=== PATIENT | female | born 1990 ===

== ENCOUNTER 2021-08-28 12:45 | Outpatient (CLI) | payer OTHER ==
[~2021-08-28] VITALS: Ht 175.3 cm; Wt 109.2 kg
[2021-08-28 13:09] VITALS: BP 147/89
[2021-08-28] MEDS ORDERED: LR 1,000 ML IV ONE (13:20)
[2021-08-28 13:30] VITALS: BP 123/72
[2021-08-28] MEDS ORDERED: PRENTAB9 PO (13:50)
[2021-08-28] MEDS ORDERED: TUMS500C PO (13:50)
[2021-08-28] MEDS ORDERED: ASPI81CH33 PO (13:50)
[2021-08-28 13:57] VITALS: BP 121/71
[2021-08-28 14:11] LABS: CREATININE,RANDOM URINE 47.2 MG/DL; TOTAL PROTEIN,RANDOM URINE 9.6 MG/DL (0.0-12.0)
[2021-08-28 14:17] LABS: ALT/SGPT 24 U/L (12-78); BILIRUBIN,TOTAL 0.2 MG/DL (0.2-1.0); CREATININE FOR GFR 0.69 MG/DL (0.55-1.30); GLOMERULAR FILTRATION RATE > 60.0 (>60); LDH LACTATE DEHYDROGENASE 244 U/L (84-246); URIC ACID 3.9 MG/DL (2.6-6.0)
== END 2021-08-28 15:18 | disposition home or self-care (01) ==
LOC: M LDO 12:45
PROVIDERS: ATTEND Obstetrics & Gynecology
DX: O26.893 Other specified pregnancy related conditions, third trimester (principal); Z3A.28 28 weeks gestation of pregnancy; R42 Dizziness and giddiness; R11.0 Nausea; R51.9 Headache, unspecified; O09.813 Supervision of pregnancy resulting from assisted reproductive technology, third trimester
CPT/HCPCS: 59025; 82247; 82565; 82570; 83615; 84156; 84450; 84460; 84550; G0378; G0463

== ENCOUNTER 2021-11-04 12:54 | Outpatient (CLI) | payer OTHER ==
[~2021-11-04] VITALS: Ht 177.8 cm; Wt 106.6 kg
[~2021-11-04 12:54] MED LIST: ASPI81CH33 PO; PRENTAB9 PO; TUMS500C PO
[2021-11-04] MEDS ORDERED: BUTA1CAP PO (13:26)
[2021-11-04] MEDS ORDERED: ACET325C5 PO (13:27)
[2021-11-04 13:30] VITALS: BP 133/76
[2021-11-04] MEDS ORDERED: diphenhydrAMINE 50MG/ML VIAL (J1200) IV ONE (14:00)
[2021-11-04] MEDS ORDERED: METOCLOPRAMIDE INJ 10MG/2ML VIAL (J2765 PER 1) IV ONE (14:00)
[2021-11-04] MEDS ORDERED: LACTATED RINGER'S 1000 ML IV STA (14:00)
[2021-11-04] MEDS ORDERED: ACETAMINOPHEN 500 MG TAB PO ONE (14:00)
[2021-11-04 14:08] VITALS: BP 127/84
[2021-11-04 14:20] LABS: HEMATOCRIT 30.4 % (36.0-47.0); HEMOGLOBIN 10.5 g/dl (12.0-15.5); MEAN CORPUSCULAR HEMOGLOBIN 29.1 pg (27.0-33.0); MEAN CORPUSCULAR HGB CONC 34.5 g/dl (32.0-36.5); MEAN CORPUSCULAR VOLUME 84.2 fl (80.0-96.0); PLATELET COUNT, AUTOMATED 186 10^3/uL (150-450); RED BLOOD COUNT 3.61 10^6/uL (4.00-5.40); WHITE BLOOD COUNT 12.9 10^3/uL (4.0-10.0)
[2021-11-04 14:38] LABS: ALT/SGPT 28 U/L (12-78); BILIRUBIN,TOTAL 0.3 MG/DL (0.2-1.0); GLOMERULAR FILTRATION RATE > 60.0 (>60); LDH LACTATE DEHYDROGENASE 176 U/L (84-246); URIC ACID 5.8 MG/DL (2.6-6.0)
[2021-11-04 15:27] LABS: CREATININE,RANDOM URINE 49.4 MG/DL; TOTAL PROTEIN,RANDOM URINE 9.4 MG/DL (0.0-12.0)
== END 2021-11-04 15:50 | disposition home or self-care (01) ==
LOC: M LDO 12:54
PROVIDERS: ATTEND Obstetrics & Gynecology
DX: O26.893 Other specified pregnancy related conditions, third trimester (principal); R51.9 Headache, unspecified; Z3A.37 37 weeks gestation of pregnancy
CPT/HCPCS: 36415; 59025; 59412; 82247; 82565; 82570; 83615; 84156; 84450; 84460; 84550; 85027; G0378; J1200; J2765

== ENCOUNTER 2021-11-10 07:28 | Inpatient (IN) | payer OTHER ==
[2021-11-10] VITALS (33 sets, daily range): BP systolic 122–180; BP diastolic 58–114
[~2021-11-10] VITALS: Ht 177.8 cm; Wt 107.7 kg
[~2021-11-10 07:28] MED LIST changes: +ACET325C5 PO; +BUTA1CAP PO
[2021-11-10] MEDS ORDERED: LABETALOL 100MG/20ML VIAL IV ONE (08:15)
[2021-11-10] MEDS ORDERED: OXYTOCIN DRIP 30 UNITS in IV 1 EA IV SCH ×2 (08:15→20:25)
[2021-11-10] MEDS ORDERED: OXYTOCIN DRIP 30 UNITS in IV 1 EA IV PRN (08:15)
[2021-11-10] MEDS ORDERED: HOME MED LIST COMPLETE! XX SCH (08:15)
[2021-11-10] MEDS ORDERED: CARBOPROST TROMETHAMINE 250 MCG/ML AMP IM PRN (08:15)
[2021-11-10] MEDS ORDERED: TRANEXAMIC ACID INJection 1,000 MG in NS 100 ML IV PRN (08:15)
[2021-11-10] MEDS ORDERED: LIDOCAINE 1% MDV 20ML VIAL INFIL PRN (08:15)
[2021-11-10] MEDS: LR 1,000 ML IV SCH ×3 (08:56→16:15)
[2021-11-10 09:34] LABS: CREATININE,RANDOM URINE 50.9 MG/DL; TOTAL PROTEIN,RANDOM URINE 14.4 MG/DL (0.0-12.0)
[2021-11-10 09:37] LABS: ALT/SGPT 34 U/L (12-78); BILIRUBIN,TOTAL 0.3 MG/DL (0.2-1.0); CREATININE FOR GFR 1.12 MG/DL (0.55-1.30); LDH LACTATE DEHYDROGENASE 192 U/L (84-246); URIC ACID 5.7 MG/DL (2.6-6.0)
[2021-11-10 10:42] LABS: HEMATOCRIT 31.4 % (36.0-47.0); HEMOGLOBIN 10.8 g/dl (12.0-15.5); MEAN CORPUSCULAR HEMOGLOBIN 29.3 pg (27.0-33.0); MEAN CORPUSCULAR HGB CONC 34.4 g/dl (32.0-36.5); MEAN CORPUSCULAR VOLUME 85.3 fl (80.0-96.0); PLATELET COUNT, AUTOMATED 197 10^3/uL (150-450); RED BLOOD COUNT 3.68 10^6/uL (4.00-5.40); WHITE BLOOD COUNT 14.1 10^3/uL (4.0-10.0)
[2021-11-10 12:10] LABS: APPEARANCE, URINE CLEAR (CLEAR); BACTERIA, URINE AUTO NEGATIVE (NEGATIVE); BILIRUBIN, URINE AUTO NEGATIVE (NEGATIVE); BLOOD, URINE BLOOD 1+ (NEGATIVE); COLOR, URINE YELLOW (YELLOW); GLUCOSE, URINE (UA) AUTO NEGATIVE (NEGATIVE); KETONE, URINE AUTO NEGATIVE (NEGATIVE); LEUKOCYTE ESTERASE, URINE AUTO 3+ (NEGATIVE); MUCUS, URINE SMALL (NEGATIVE); NITRITE, URINE AUTO NEGATIVE (NEGATIVE); PROTEIN, URINE AUTO NEGATIVE (NEGATIVE); RBC, URINE AUTO 0 /HPF (0-3); SPECIFIC GRAVITY URINE AUTO 1.005 (1.002-1.035); SQUAMOUS EPITHELIAL CELL UR AU 5 /HPF (0-6); UROBILINOGEN, URINE AUTO 0.2 mg/dL (0.0-2.0); WBC, URINE AUTO 6 /HPF (0-3)
[2021-11-10] MEDS: LABETALOL 100MG/20ML VIAL IV SCH ×2 (12:29→16:13)
[2021-11-10] MEDS ORDERED: LABETALOL 100MG/20ML VIAL IV STA (12:53)
[2021-11-10] MEDS ORDERED: MAG Sulf (L&D) 4 GM/100 ML 4 GM in IV 1 EA IV ONE (15:25)
[2021-11-10] MEDS ORDERED: MAGNESIUM SULFATE 4% INJ 20GM/500ML (40MG/ML) As Ordered ONE (15:39)
[2021-11-10] MEDS ORDERED: MAGNESIUM *L&D* 4GM/100ML BAG (40MG/ML) As Ordered ONE (15:39)
[2021-11-10] MEDS: MAG Sulf (OBGYN) 20GM/500ML 20,000 MG in IV 1 EA IV SCH (15:49)
[2021-11-10] MEDS: ACETAMINOPHEN 500 MG TAB PO PRN (19:07)
[2021-11-10] MEDS ORDERED: LR 1,000 ML IV SCH (20:25)
[2021-11-10] MEDS ORDERED: FENTANYL 2MCG/ML ROPIVACAINE 0.2% IN 0.9% NACL 100ML IVBAG As Ordered ONE (22:54)
[2021-11-11] VITALS (104 sets, daily range): BP systolic 78–177; BP diastolic 45–103
[2021-11-11] MEDS ORDERED: diphenhydrAMINE 50MG/ML VIAL (J1200) IV PRN
[2021-11-11] MEDS ORDERED: NALOXONE INJ 0.4MG/1ML VIAL (J2310 PER 1MG) IV PRN
[2021-11-11] MEDS ORDERED: EPIDURAL/PCA KEYS XX PRN
[2021-11-11] MEDS ORDERED: LR 500 ML IV PRN
[2021-11-11] MEDS ORDERED: ONDANSETRON 4MG/2ML VIAL IV PRN
[2021-11-11] MEDS: MAG Sulf (OBGYN) 20GM/500ML 20,000 MG in IV 1 EA IV SCH ×2 (01:48→16:28)
[2021-11-11] MEDS: FENTANYL/ROPIVACAINE/NACL BAG 100 ML EPIDURAL SCH ×2 (01:49→12:39)
[2021-11-11] MEDS: LR 1,000 ML IV SCH ×2 (01:53→16:28)
[2021-11-11] MEDS ORDERED: ePHEDrine SULFATE 25 MG/5 ML(5MG/ML) SYRINGE As Ordered ONE (04:56)
[2021-11-11] MEDS: ePHEDrine SULFATE 25 MG/5 ML(5MG/ML) SYRINGE IV PRN ×5 (04:57→07:00)
[2021-11-11 06:59] LABS: HEMATOCRIT 30.7 % (36.0-47.0); HEMOGLOBIN 10.2 g/dl (12.0-15.5); MEAN CORPUSCULAR HEMOGLOBIN 28.5 pg (27.0-33.0); MEAN CORPUSCULAR HGB CONC 33.2 g/dl (32.0-36.5); MEAN CORPUSCULAR VOLUME 85.8 fl (80.0-96.0); PLATELET COUNT, AUTOMATED 178 10^3/uL (150-450); RED BLOOD COUNT 3.58 10^6/uL (4.00-5.40); WHITE BLOOD COUNT 15.2 10^3/uL (4.0-10.0)
[2021-11-11] MEDS ORDERED: OXYTOCIN INJ 10 UNITS/ML VIAL (J2590) IV ONE ×2 (08:45→15:25)
[2021-11-11] MEDS ORDERED: CALCIUM CARBONATE 500 MG CHEW U/D PO PRN ×2 (10:50→22:40)
[2021-11-11 15:05] LABS: CORD GAS ABE A -11.9; CORD GAS ABE V -8.9; CORD GAS HCO3 A 19.5 MEQ/L; CORD GAS O2 SAT A 17.6 %; CORD GAS O2 SAT V 73.2 %; CORD GAS PCO2 A 67.8 mmHg; CORD GAS PCO2 V 37.1 mmHg; CORD GAS PH A 7.076 UNITS; CORD GAS PH V 7.279 UNITS; CORD GAS PO2 A 14.9 mmHg; CORD GAS PO2 V 33.6 mmHg; CORD GAS SBC A 13.8 MEQ/L; CORD GAS TCO2 A 21.6 MEQ/L; CORD GAS TCO2 V 18.1 MEQ/L
[2021-11-11] MEDS ORDERED: ACETAMINOPHEN TAB 650MG DOSE (2X325MG) PO PRN (15:25)
[2021-11-11] MEDS ORDERED: DOCUSATE SODIUM 100MG CAPSULE PO PRN (15:25)
[2021-11-11] MEDS ORDERED: ANUSOL HC CREAM 30GM TOP PRN (15:25)
[2021-11-11] MEDS ORDERED: ACETAMINOPHEN 500 MG TAB PO PRN (15:25)
[2021-11-11] MEDS ORDERED: MEASLES,MUMPS,RUBELLA VACCINE INJ (MMR-II) (90707) SC SCH (15:25)
[2021-11-11] MEDS ORDERED: miSOPROStol 100MCG TABLET PR ONE (15:25)
[2021-11-11] MEDS ORDERED: OXYTOCIN DRIP 30 UNITS in IV 1 EA IV ONE (15:25)
[2021-11-11] MEDS ORDERED: MOM 30ML SUSPENSION UDC PO PRN (15:25)
[2021-11-11] MEDS ORDERED: RHOGAM 300 MCG (1500 IU) INJ (J2790) IM SCH (15:25)
[2021-11-11] MEDS ORDERED: OXYTOCIN DRIP 30 UNITS in IV 1 EA IV SCH (15:25)
[2021-11-11] MEDS ORDERED: DIBUCAINE 1% OINTMENT 30GM TOP PRN (15:25)
[2021-11-11] MEDS: IBUPROFEN 600MG TAB PO PRN (16:05)
[2021-11-11] MEDS ORDERED: MAGNESIUM SULFATE 4% INJ 20GM/500ML (40MG/ML) As Ordered ONE (16:15)
[2021-11-11] MEDS ORDERED: LABETALOL 100MG/20ML VIAL IV STA ×2 (17:18→18:51)
[2021-11-11] MEDS: ACETAMINOPHEN 500 MG TAB PO PRN (19:59)
[2021-11-11] MEDS ORDERED: FAMOTIDINE 20 MG TAB PO SCH (21:00)
[2021-11-11 23:48] LABS: ALBUMIN 1.6 GM/DL (3.2-5.2); ALT/SGPT 28 U/L (12-78); BILIRUBIN,TOTAL 0.3 MG/DL (0.2-1.0); BLOOD UREA NITROGEN 7 MG/DL (7-18); CALCIUM LEVEL 8.3 MG/DL (8.5-10.1); CARBON DIOXIDE LEVEL 25 MEQ/L (21-32); CHLORIDE LEVEL 106 MEQ/L (98-107); CREATININE FOR GFR 1.11 MG/DL (0.55-1.30); GLOMERULAR FILTRATION RATE > 60.0 (>60); GLUCOSE, FASTING 118 MG/DL (70-100); MAGNESIUM LEVEL 6.2 MG/DL (1.8-2.4); POTASSIUM SERUM 2.8 MEQ/L (3.5-5.1); SODIUM LEVEL 141 MEQ/L (136-145); TOTAL PROTEIN 5.1 GM/DL (6.4-8.2)
[2021-11-12] VITALS (15 sets, daily range): BP systolic 109–150; BP diastolic 60–98
[2021-11-12] MEDS: KCL 10MEQ/100ML SWI (KRUN) 10 MEQ in IV 1 EA IV SCH ×2 (00:59→01:55)
[2021-11-12] MEDS ORDERED: KCL 10MEQ/100ML SWI (KRUN) 10 MEQ in IV 1 EA IV ONE (01:00)
[2021-11-12] MEDS: LR 1,000 ML IV SCH (01:54)
[2021-11-12] MEDS: MAG Sulf (OBGYN) 20GM/500ML 20,000 MG in IV 1 EA IV SCH ×2 (01:54→10:47)
[2021-11-12 07:24] LABS: HEMATOCRIT 31.4 % (36.0-47.0); HEMOGLOBIN 10.5 g/dl (12.0-15.5); MEAN CORPUSCULAR HGB CONC 33.4 g/dl (32.0-36.5); MEAN CORPUSCULAR VOLUME 86.7 fl (80.0-96.0); PLATELET COUNT, AUTOMATED 205 10^3/uL (150-450); RED BLOOD COUNT 3.62 10^6/uL (4.00-5.40); WHITE BLOOD COUNT 18.3 10^3/uL (4.0-10.0)
[2021-11-12] MEDS: IBUPROFEN 600MG TAB PO PRN (09:36)
[2021-11-12] MEDS: PRENATAL VITAMINS CHEWABLE TABLET PO SCH (09:36)
[2021-11-12 12:09] LABS: BILIRUBIN,TOTAL 0.3 MG/DL (0.2-1.0); CALCIUM LEVEL 8.4 MG/DL (8.5-10.1); CREATININE FOR GFR 1.12 MG/DL (0.55-1.30); POTASSIUM SERUM 3.2 MEQ/L (3.5-5.1); TOTAL PROTEIN 5.3 GM/DL (6.4-8.2); URIC ACID 6.6 MG/DL (2.6-6.0)
[2021-11-12 12:24] LABS: MAGNESIUM LEVEL 8.1 MG/DL (1.8-2.4)
[2021-11-12] MEDS: FAMOTIDINE 20 MG TAB PO SCH (20:15)
[2021-11-13 02:00] VITALS: BP 134/69
[2021-11-13 06:00] VITALS: BP 139/73
[2021-11-13] MEDS ORDERED: COLA100C5 PO (07:14)
[2021-11-13] MEDS ORDERED: PRENCHW PO (07:14)
[2021-11-13] MEDS ORDERED: IBUP-1022 PO (07:14)
[2021-11-13 07:29] LABS: HEMATOCRIT 28.5 % (36.0-47.0); HEMOGLOBIN 9.6 g/dl (12.0-15.5); MEAN CORPUSCULAR HEMOGLOBIN 29.3 pg (27.0-33.0); MEAN CORPUSCULAR HGB CONC 33.7 g/dl (32.0-36.5); MEAN CORPUSCULAR VOLUME 86.9 fl (80.0-96.0); PLATELET COUNT, AUTOMATED 191 10^3/uL (150-450); RED BLOOD COUNT 3.28 10^6/uL (4.00-5.40); WHITE BLOOD COUNT 13.9 10^3/uL (4.0-10.0)
[2021-11-13] MEDS: PRENATAL VITAMINS CHEWABLE TABLET PO SCH (09:00)
[2021-11-13] MEDS: FAMOTIDINE 20 MG TAB PO SCH (09:00)
[2021-11-13 10:00] VITALS: BP_SYST 138; BP_SYST 144; BP_DIAS 70; BP_DIAS 78
== END 2021-11-13 10:26 | disposition home or self-care (01) | DRG 807 ==
LOC: M LDI 07:28 → M OBS 11-12 16:00
PROVIDERS: ADMIT Registered Nurse; ATTEND Obstetrics & Gynecology
PROC: 3E033VJ Introduction of Other Hormone into Peripheral Vein, Percutaneous Approach (ICD-10-PCS; 2021-11-10)
PROC: 10E0XZZ Delivery of Products of Conception, External Approach (ICD-10-PCS; principal; 2021-11-11)
PROC: 10907ZC Drainage of Amniotic Fluid, Therapeutic from Products of Conception, Via Natural or Artificial Opening (ICD-10-PCS; 2021-11-11)
PROC: 0HQ9XZZ Repair Perineum Skin, External Approach (ICD-10-PCS; 2021-11-11)
DX: O11.4 Pre-existing hypertension with pre-eclampsia, complicating childbirth (principal); Z37.0 Single live birth; O34.219 Maternal care for unspecified type scar from previous cesarean delivery; O10.02 Pre-existing essential hypertension complicating childbirth; Z3A.38 38 weeks gestation of pregnancy; O24.420 Gestational diabetes mellitus in childbirth, diet controlled; O99.214 Obesity complicating childbirth; E66.9 Obesity, unspecified; O69.81X0 Labor and delivery complicated by cord around neck, without compression, not applicable or unspecified; O70.0 First degree perineal laceration during delivery; O99.284 Endocrine, nutritional and metabolic diseases complicating childbirth; E87.6 Hypokalemia

== ENCOUNTER → 2022-05-02 | Outpatient (REF) | payer OTHER ==
[~2022-05-02] MED LIST changes: +COLA100C5 PO; +IBUP-1022 PO; +PRENCHW PO
[2022-05-02 19:51] LABS: FREE T4 1.66 NG/DL (0.89-1.76); THYROID STIMULATING HORMONE 0.128 uIU/ML (0.55-4.78)
== END ==
LOC: M LAB REF 16:50
PROVIDERS: ATTEND Internal Medicine Nephrology
DX: E03.9 Hypothyroidism, unspecified (principal)

== ENCOUNTER → 2022-11-16 | Outpatient (REF) | payer OTHER | LOC: M LAB REF 17:15 | PROVIDERS: ATTEND Internal Medicine Nephrology | DX: N39.0 Urinary tract infection, site not specified (principal) ==